=== PATIENT | male | born 1955 | race Caucasian/White ===

== ENCOUNTER → 2021-10-08 | Outpatient (CLI) | payer OTHER ==
--- NOTE | 2021-10-08 12:28 | CA ---
Transthoracic Echo Report Name: Kenny Bobo Age: 66 Gender: M : 1955 Exam Date: 10/08/2021 11:48 Exam Location: [facility] Ht (in): 70 Wt (lb): 250 Ordering Physician: Daniel López Attending/Referring Phys: Chef Kitchen Manager Swapna Olsen RDCS Procedure CPT: Indications: I10 HTN Cardiac Hx: Technical Quality: Contrast 1: Total Dose (mL): Contrast 2: Total Dose (mL): MEASUREMENTS (Male / Female) Normal Values 2D ECHO LV Diastolic Diameter PLAX 4.7 cm 4.2 - 5.9 / 3.9 - 5.3 cm LV Systolic Diameter PLAX 2.8 cm IVS Diastolic Thickness 1.4 cm 0.6 - 1.0 / 0.6 - 0.9 cm LVPW Diastolic Thickness 1.3 cm 0.6 - 1.0 / 0.6 - 0.9 cm LV Relative Wall Thickness 0.6 RV Internal Dim ED PLAX 2.7 cm LA Systolic Diameter LX 4.2 cm 3.0 - 4.0 / 2.7 - 3.8 cm LA Volume 56.0 cm??? 18 - 58 / 22 - 52 cm??? M-MODE Aortic Root Diameter MM 3.4 cm MV E Point Septal Separation 0.7 cm AV Cusp Separation MM 2.3 cm DOPPLER AV Peak Velocity 180.2 cm/s AV Peak Gradient 13.0 mmHg AV Mean Velocity 113.1 cm/s AV Mean Gradient 6.0 mmHg AV Velocity Time Integral 33.4 cm MV Area PHT 3.6 cm??? Mitral E Point Velocity 96.7 cm/s Mitral A Point Velocity 109.3 cm/s Mitral E to A Ratio 0.9 MV Deceleration Time 212.4 ms MV E' Velocity 7.5 cm/s Mitral E to MV E' Ratio 12.9 FINDINGS Left Ventricle Left ventricular ejection fraction is estimated at 60-65 %. Left ventricular cavity size normal. Mild concentric left ventricular hypertrophy. Right Ventricle Normal right ventricular size. Unable to estimate the right ventricular systolic pressure. Right Atrium Normal right atrial size. Left Atrium Normal left atrial size. No evidence for an atrial septal defect. Mitral Valve Mitral annular calcification. Trace mitral regurgitation. Aortic Valve Trileaflet aortic valve. Trace aortic regurgitation. Tricuspid Valve Structurally normal tricuspid valve. Pulmonic Valve Trace pulmonic regurgitation. Pericardium Normal pericardium. Aorta Normal size aortic root and proximal ascending aorta. CONCLUSIONS Left ventricular ejection fraction 60-65% Mild LVH Trace mitral regurgitation Trace aortic regurgitation No pericardial effusion Previewed by: Dr. Lamine Glez DO (Electronically Signed) Final Date: 08 October 2021 12:26
== END | disposition home or self-care (01) ==
LOC: RADECHMAIN 11:39
PROVIDERS: ATTEND Family Medicine
DX: I34.0 Nonrheumatic mitral (valve) insufficiency (principal); I35.1 Nonrheumatic aortic (valve) insufficiency
CPT/HCPCS: 93306

== ENCOUNTER 2022-11-03 08:22 | Day surgery (SDC) | payer MEDICARE, OTHER ==
[2022-11-02 08:40] VITALS: BMI 34.9
[2022-11-03] MEDS ORDERED: LACTATED RINGERS 1,000 ML IV SCH (08:47)
[2022-11-03] MEDS ORDERED: LIDOCAINE 1% (10MG/ML) FOR IV START INTRADERMA PRN (08:47)
[2022-11-03 08:54] VITALS: TEMP 97.7
[2022-11-03] MEDS ORDERED: PROPOFOL 10 MG/ML 20 ML VIAL IV ONE (10:06)
--- NOTE | 2022-11-03 10:24 | P.PCN ---
Date of Procedure: 11/03/22 Procedure(s) Performed: BRIEF HISTORY: Patient is a 67-year-old pleasant white male scheduled for an elective colonoscopy as a part of screening for colon cancer. PROCEDURE PERFORMED: Colonoscopy with biopsy and snare polypectomy. PREOPERATIVE DIAGNOSIS: Screening for colon cancer. IV sedation per Anesthesia. PROCEDURE: After informed consent was obtained, the patient, was brought into the endoscopy unit. IV sedation was administered by Anesthesia under continuous monitoring. Digital rectal examination was normal. Initially the Olympus CF-160 flexible video colonoscope was then inserted in the rectum, gradually advanced into the cecum without any difficulty. Careful examination was performed as the scope was gradually being withdrawn. Ileocecal valve and the appendiceal orifice were visualized and appeared normal. Prep was excellent. Mucosa of the cecum, ascending colon, appeared normal. In the hepatic flexure there were 2 polyps measuring 3 mm in size removed by cold biopsy. In the descending colon there was a 4 mm polyp that was removed by cold biopsy. In the sigmoid: There was a 6 minute a polyp that was removed by snare polypectomy. Scattered sigmoid diverticulosis seen. Rest of the sigmoid colon, and rectum appeared normal. Retroflexion was performed in the rectum and no lesions were seen. The patient tolerated the procedure well. IMPRESSION: 3 mm 2 hepatic flexure polyp status post cold biopsy 4 mm descending colon polyp status post cold biopsy 6 mm; sigmoid polyp status post polypectomy Scattered sigmoid diverticulosis RECOMMENDATIONS: Findings of this examination were discussed with the patient as well as his family. He was advised to follow with the biopsy results and if the biopsy result adenoma he can have a repeat colonoscopy in 5 years
[2022-11-03 10:33] VITALS: RESP 18
[2022-11-03 11:01] VITALS: BP 119/71; PULSE 80
== END 2022-11-03 11:24 | disposition home or self-care (01) ==
LOC: ORWHC2ENDO 08:22
PROVIDERS: ATTEND Internal Medicine Gastroenterology
DX: Z12.11 Encounter for screening for malignant neoplasm of colon (principal); D12.3 Benign neoplasm of transverse colon; D12.4 Benign neoplasm of descending colon; D12.5 Benign neoplasm of sigmoid colon; K57.30 Diverticulosis of large intestine without perforation or abscess without bleeding; I10 Essential (primary) hypertension; E78.5 Hyperlipidemia, unspecified; Z90.49 Acquired absence of other specified parts of digestive tract; Z79.899 Other long term (current) drug therapy
CPT/HCPCS: 88305; 45380; 45385; J2704